=== PATIENT | female | born 1970 ===

== ENCOUNTER 2018-10-04 18:39 | Emergency (ER) | payer OTHER ==
[2018-10-04 18:55] VITALS: BMI 32.1
[2018-10-04 19:09] VITALS: RESP 18
--- NOTE | 2018-10-04 20:57 | ED PDOC ---
Arrival/HPI - General Chief Complaint: High Blood Pressure Time Seen by Provider: 10/04/18 19:22 Historian: Patient - History of Present Illness Narrative History of Present Illness (Text): 10/04/18 20:52 Cindy Roque is a 48 year old female, whose past medical history includes hypertension, non-compliant with medication, who presents to the Emergency department after a wellness check at home today noted her blood pressure was el evated. Patient was advised to come to the emergency department for further treatment. Patient denies any symptoms, states she feels fine. Patient states she was previously on Lisinopril 10mg daily but ran out and stopped taking.. Patient denies any chest pain, shortness of breath, headache, visual disturbances, or any other complaints. Symptom Onset: Gradual Symptom Course: Unchanged Activities at Onset: Light Context: Home Past Medical History - Provider Review Nursing Documentation Reviewed: Yes - Infectious Disease Hx of Infectious Diseases: None - Cardiac Hx Cardiac Disorders: Yes Hx Hypertension: Yes - Pulmonary Hx Respiratory Disorders: No - Neurological Hx Neurological Disorder: No - HEENT Hx HEENT Disorder: No - Renal Hx Renal Disorder: No - Endocrine/Metabolic Hx Endocrine Disorders: No - Hematological/Oncological Hx Blood Disorders: No - Integumentary Hx Dermatological Disorder: No - Musculoskeletal/Rheumatological Hx Musculoskeletal Disorders: No - Gastrointestinal Hx Gastrointestinal Disorders: No - Genitourinary/Gynecological Hx Genitourinary Disorders: No - Psychiatric Hx Psychophysiologic Disorder: No Hx Substance Use: No Family/Social History - Physician Review Nursing Documentation Reviewed: Yes Family/Social History: Unknown Family HX Smoking Status: Never Smoked Hx Alcohol Use: Yes Frequency of alcohol use: Socially Hx Substance Use: No Allergies/Home Meds Allergies/Adverse Reactions: Allergies No Known Allergies Allergy (Unverified 10/04/18 19:31) Review of Systems - Physician Review All systems were reviewed & negative as marked: Yes - Review of Systems Constitutional: Normal. absent: Fevers Eyes: Normal ENT: Normal Respiratory: Normal. absent: SOB, Cough Cardiovascular: Other (+high blood pressure) Gastrointestinal: Normal. absent: Abdominal Pain, Diarrhea, Nausea, Vomiting Genitourinary Female: Normal. absent: Dysuria, Frequency, Hematuria, Urine Output Changes Musculoskeletal: Normal. absent: Back Pain, Neck Pain Skin: Normal. absent: Rash Neurological: Normal. absent: Headache, Dizziness Endocrine: Normal Hemo/Lymphatic: Normal Psychiatric: Normal Physical Exam Vital Signs Reviewed: Yes Vital Signs Temp Pulse Resp BP Pulse Ox 10/04/18 20:40 98.6 F 51 L 18 196/103 H 99 10/04/18 20:03 65 217/122 H 10/04/18 20:02 65 217/122 H 10/04/18 19:08 98.6 F 65 18 217/122 H 99 Temperature: Afebrile Blood Pressure: Hypertensive Pulse: Regular Respiratory Rate: Normal Appearance: Positive for: Well-Appearing, Non-Toxic, Comfortable Pain Distress: None Mental Status: Positive for: Alert and Oriented X 3 - Systems Exam Head: Present: Atraumatic, Normocephalic Pupils: Present: PERRL Extroacular Muscles: Present: EOMI Conjunctiva: Present: Normal Ears: Present: Normal, NORMAL TM, Normal Canal. No: Erythema, TM Bulging, Fluid, TM Perf Mouth: Present: Moist Mucous Membranes Pharnyx: Present: Normal. No: ERYTHEMA, EXUDATE, TONSILS ENLARGED, Peritonsilar Swelling, Uvular Deviation, Muffled/Hoarse Voice, Strider, Soft Palate/Uvular Edema Nose (External): Present: Atraumatic Nose (Internal): Present: Normal Inspection Neck: Present: Normal Range of Motion. No: Meningeal Signs, MIDLINE TENDERNESS, Paraspinal Tenderness Respiratory/Chest: Present: Clear to Auscultation, Good Air Exchange. No: Re spiratory Distress, Accessory Muscle Use Cardiovascular: Present: Regular Rate and Rhythm, Normal S1, S2. No: Murmurs Abdomen: No: Tenderness, Distention, Peritoneal Signs Back: Present: Normal Inspection. No: CVA Tenderness, Midline Tenderness, Paraspinal Tenderness Upper Extremity: Present: Normal Inspection. No: Cyanosis, Edema Lower Extremity: Present: Normal Inspection. No: Edema Neurological: Present: GCS=15, CN II-XII Intact, Speech Normal Skin: Present: Warm, Dry, Normal Color. No: Rashes Psychiatric: Present: Alert, Oriented x 3, Normal Insight, Normal Concentration Medical Decision Making ED Course and Treatment: 10/04/18 20:52 Impression: 48 year old female complaining of high blood pressure. Plan: -- Catapres -- Zestril -- Reassess and disposition Prior Visits: Notes and results from previous visits were reviewed. Progress Notes: Reviewed EKG, NSR at 66 bpm. LVH. Non-specific ST/T wave changes. 10/04/18 21:55 On re-evaluation, patient feels better and is in no acute distress. I have discussed the results and plan with the patient, who expresses understanding. Patient in agreement with plan to be discharged home. Patient is stable for discharge. Patient was instructed to follow up with physician or return if symptoms worsen or new concerning symptoms arise. - EKG Interpretation Interpreted by ED Physician: Yes Type: 12 lead EKG - Medication Orders Current Medication Orders: Discontinued Medications Clonidine HCl (Catapres) 0.2 mg PO STAT STA Stop: 10/04/18 19:32 Last Admin: 10/04/18 20:02 Dose: 0.2 mg MAR Pulse and Blood Pressure Document 10/04/18 20:02 OCS (Rec: 10/04/18 20:03 OCS [id number]) Pulse Pulse Rate (60-90 beats/min) 65 Blood Pressure Blood Pressure (100/60-150/90 mm Hg) 217/122 Lisinopril (Zestril) 10 mg PO STAT STA Stop: 10/04/18 19:59 Last Admin: 10/04/18 20:03 Dose: 10 mg MAR Pulse and Blood Pressure Document 10/04/18 20:03 OCS (Rec: 10/04/18 20:03 [id number]) Pulse Pulse Rate (60-90 beats/min) 65 Blood Pressure Blood Pressure (100/60-150/90 mm Hg) 217/122 - Scribe Statement The provider has reviewed the documentation as recorded by the Ronald Muñoz Provider Scribe Attestation: All medical record entries made by the Scribfátima were at my direction and personally dictated by me. I have reviewed the chart and agree that the record accurately reflects my personal performance of the history, physical exam, medical decision making, and the department course for this patient. I have also personally directed, reviewed, and agree with the discharge instructions and disposition. Disposition/Present on Arrival - Present on Arrival Any Indicators Present on Arrival: No History of DVT/PE: No History of Uncontrolled Diabetes: No Urinary Catheter: No History of Decub. Ulcer: No History Surgical Site Infection Following: None - Disposition Have Diagnosis and Disposition been Completed?: Yes Diagnosis: Chronic hypertension Disposition: HOME/ ROUTINE Disposition Time: 21:57 Patient Plan: Discharge Condition: GOOD Discharge Instructions (ExitCare): High Blood Pressure (DC) Additional Instructions: Take meds as prescribed/follow up with your doctor this week Prescriptions: RX: Lisinopril [Prinivil] 10 mg PO DAILY #30 tablet Referrals: [facility] [Outside] - Follow up with primary Fatoumata Medeiros MD [Medical Doctor] - Follow up with primary Forms: [employer] (Swedish)
[2018-10-04 21:33] VITALS: BP 145/86; PULSE 58; TEMP 98.5; O2SAT 98
--- NOTE | 2018-10-05 11:02 | CARD ---
APPROVED REPORT Date of service: 10/04/2018 EKG Measurement Heart [id number] <Conclusion> Poor data quality, interpretation may be adversely affected Normal sinus rhythm Possible Left atrial enlargement Left ventricular hypertrophy Nonspecific T wave abnormality Abnormal ECG
== END 2018-10-04 22:00 | disposition home or self-care (01) ==
LOC: ED 18:39
DX: I10 Essential (primary) hypertension (principal)